=== PATIENT | male | born 1945 | race Caucasian/White ===

== ENCOUNTER → 2017-07-22 | Outpatient (CLI) | payer BC, MEDICARE ==
[~2017-07-22] MED LIST: ALTACE10 MG PO; COUMADIN5 MG PO; ECOTRIN81 M1 PO; VYTORIN 10/40 M1 TAB PO
--- NOTE | ~2017-07-22 | PFT ---
[id number] [facility] [address] [facility]. [place], [place] [address] [id number] O MR#: [id number] NAME: VALE MONTANA ROOM: SEX: M STUDY DATE/TIME: : 1945 AGE: STUDY DESCRIPTION: Attending Physician: Primo Guardado M.D. Referring Physician: Primo Guardado M.D. Primary Care Physician: Jann Fowler M.D. PULMONARY DIAGNOSTIC REPORT EXAM Pulmonary function tests. FINDINGS Spirometry is suggestive of a restrictive defect. No significant response to bronchodilators. Flow volume loop is consistent with a restrictive defect. Lung volumes confirm restriction with a total lung capacity of 53%. Diffusion capacity is 37% suggesting an intrinsic restrictive defect such as pulmonary fibrosis. Dictated by... Hola Kingsley M.D. GERRY/ewa TD: 08/02/2017 11:38 JOB #: [id number] PULMONARY DIAGNOSTIC REPORT Page 1 of 1
--- NOTE | ~2017-07-22 | CT57 ---
[facility] A Service [facility] RADIOLOGY TEXT RESULTS PATIENT: VALE MONTANA LOCATION: [facility] : 41 UNIT #: [id number] AGE: [address]: Primo Guardado SEX: M ORDER DR: [id number] [id number] [facility]. [place], [place] [address] [id number] O MR#: [id number] Acc #: [id number] NAME: VALE MONTANA : 1945 SEX: M STUDY DATE/TIME: 07/22/2017 10:31 UNIT: [facility] ROOM: STUDY DESCRIPTION: CT Chest Wo Cont Attending Physician: Primo Guardado M.D. Referring Physician: Primo Guardado M.D. Ordering Physician: Iain Guardado Primary Care Physician: Jann Fowler M.D. MEDICAL IMAGING REPORT This report is preliminary unless electronic signature is present EXAM CT of the chest with contrast INDICATIONS Follow up interstitial lung disease. TECHNIQUE CT scan of the chest was performed without contrast. Coronal and sagittal reformatted images were obtained. This CT exam was performed with one or more of the following radiation dose reduction techniques: automatic exposure control, adjustment of mA and/or kV according to patient size, and iterative reconstruction. COMPARISON STUDIES Comparison is made with 07/31/2016. FINDINGS Again demonstrated is peripheral interstitial pulmonary fibrosis with a lower zone predominance. Overall, the findings have worsened compared with previous study and overall, low lung volumes are slightly lower. There is no airspace consolidation. Stable prominent mediastinal lymph nodes, which are likely reactive given the findings in the lungs. No pleural effusion. Coronary artery calcification. Prior sternotomy and prior CABG. Limited imaging of the upper abdomen is unremarkable. Bone windows are unremarkable. IMPRESSION Interval worsening of bilateral interstitial pulmonary fibrosis. Interval decrease in lung volumes. [facility] A Service [facility] RADIOLOGY TEXT RESULTS PATIENT: VALE MONTANA LOCATION: [facility] : 41 UNIT #: [id number] AGE: [address]: Primo Guardado SEX: M ORDER DR: Dictated by... Oleg Bowers M.D. THIS IS AN ELECTRONICALLY VERIFIED REPORT Oleg Bowers M.D. at 07/28/2017 11:21 AM ARS/pcl TD: 07/23/2017 15:39 JOB #: [id number] MEDICAL IMAGING REPORT Page 1 of 1 COPY
== END | disposition home or self-care (01) ==
LOC: CCAT 09:23
DX: J84.9 Interstitial pulmonary disease, unspecified (principal); J84.10 Pulmonary fibrosis, unspecified
CPT/HCPCS: 71250; 94060; 94726; 94729